=== PATIENT | male | born 1945 | race Caucasian/White ===

== ENCOUNTER 2017-05-16 09:27 | Emergency (ER) | payer MEDICARE, OTHER ==
--- NOTE | ~2017-05-16 | CR63 ---
[facility] A Service of [facility] & [facility] RADIOLOGY TEXT RESULTS PATIENT: LAURA VILLAFANA LOCATION: [place] : 45 UNIT #: [id number] AGE: [address]: Bryan Gleason MD SEX: M ORDER DR: [id number] [facility] [address] [place], [place] [address] [id number] MR#: [id number] Acc #: [id number] NAME: LAURA VILLAFANA : 1945 SEX: M STUDY DATE/TIME: 05/16/2017 11:51 UNIT: [place] ROOM: STUDY DESCRIPTION: CR Chest 2 View Attending Physician: Bryan Gleason Ordering Physician: Ed Doc Gordon Johansen Primary Care Physician: Primary Care Physician No MEDICAL IMAGING REPORT This report is preliminary unless electronic signature is present EXAM Chest x-ray HISTORY Persistent cough beginning September 2016 TECHNIQUE 2 views of the chest were obtained FINDINGS Degenerative changes are seen throughout the thoracic discs. Heart size is borderline enlarged. The aorta is tortuous. The lungs are clear. Noted incidentally is calcified granuloma at the right base. Vascular markings are normal. IMPRESSION Tortuous aorta. No active disease. Dictated by... Butch Howard M.D. THIS IS AN ELECTRONICALLY VERIFIED REPORT Butch Howard M.D. at 05/16/2017 5:10 PM RLF/mariajose TD: 05/16/2017 14:23 JOB #: [id number] MEDICAL IMAGING REPORT Page 1 of 1 COPY
== END 2017-05-16 13:46 | disposition home or self-care (01) ==
LOC: CED 09:27
DX: J42 Unspecified chronic bronchitis (principal); I10 Essential (primary) hypertension; Z87.891 Personal history of nicotine dependence; Z98.890 Other specified postprocedural states
CPT/HCPCS: 71020; 94640; 99283